=== PATIENT | female | born 1950 ===

== ENCOUNTER 2017-05-26 19:35 | Emergency (ER) | payer MEDICARE ==
[2017-05-26 19:43] VITALS: RESP 16; TEMP 97; O2SAT 98
--- NOTE | 2017-05-26 20:27 | ED PDOC ---
Lower Extremity Pain/Injury Time Seen by Provider: 05/26/17 19:44 Chief Complaint (Nursing): Lower Extremity Problem/Injury Chief Complaint (Provider): Lower Extremity Problem/Injury History Per: Patient History/Exam Limitations: no limitations Onset/Duration Of Symptoms: Days (x 21) Current Symptoms Are (Timing): Still Present Additional Complaint(s): 66 year old female presents to the ED with complaints of left knee pain beginning three weeks ago. Patient describes pain as a cramping sensation to the back of knee that radiates to the left lower leg. Patient reports pain worsens with ambulation. Patient states last night pain interfered with her ability to sleep. Patient reports she took Tylenol this morning and felt no relief. Patient states she was climbing up stairs today and felt her knee was going to buckle. Patient has no history of knee injuries. Denies chest pain, shortness or breath, cough, prolonged immobility, smoking, palpitation, nausea, vomiting, diarrhea, and abdominal pain. PMD: Dr. Arpit jN Past Medical History Reviewed: Historical Data, Nursing Documentation, Vital Signs Vital Signs: Last Vital Signs Temp 97 F L 05/26/17 19:38 Pulse 77 05/26/17 19:38 Resp 16 05/26/17 19:38 BP 167/91 H 05/26/17 19:38 Pulse Ox 98 05/26/17 19:38 - Medical History PMH: Asthma, Diverticulitis, Gastritis, HTN, Malignancy (Breast) Denies: Chronic Kidney Disease - Surgical History Other surgeries: left breast procedure (cancer) - Family History Family History: States: Unknown Family Hx - Social History Current smoker - smoking cessation education provided: No Alcohol: None Drugs: Denies - Home Medications Home Medications: Ambulatory Orders Medication Instructions Recorded Aspirin [Aspirin EC] 1 tab PO DAILY 08/29/15 Carvedilol [Coreg] 1 tab PO BID 08/29/15 Hydrochlorothiazide [HCTZ] 1 tab PO DAILY 08/29/15 Metformin HCl [Glucophage] 1 tab PO BID 08/29/15 Nortriptyline HCl [Pamelor] 1 cap PO HS 08/29/15 Acetaminophen [Acetaminophen 8 650 mg PO Q8 #24 tab 05/26/17 Hour] - Allergies Allergies/Adverse Reactions: Allergies Allergy/AdvReac Type Severity Reaction Status Date / Time ibuprofen Allergy PAIN Verified 08/28/15 23:31 Review of Systems ROS Statement: Except As Marked, All Systems Reviewed And Found Negative Musculoskeletal: Positive for: Other (left knee pain) Physical Exam - Reviewed Nursing Documentation Reviewed: Yes Vital Signs Reviewed: Yes - Physical Exam Comments: GENERAL APPEARANCE: Patient is awake, alert, oriented x 3, in no acute distress , ambulatory in the ED without difficulty. SKIN: Warm, dry; (-) cyanosis. LOWER EXTREMITY: Knee: (+) decreased ROM of left knee, (-) swelling, (+) tenderness to posterior and lateral aspects of knee, (+) mild tenderness to proximal posterior left calf, (-) warmth, (-) erythema, (-) pedal edema (-) palpable cord, (-) instability of valgus or varus (-) anterior and posterior drawer sign. CHEST AND RESPIRATORY: (-) rales, (-) rhonchi, (-) wheezes; breath sounds equal bilaterally. HEART AND CARDIOVASCULAR: (-) irregularity; (-) murmur, (-) gallop, (+) distal pulse. ABDOMEN AND GI: Soft; (-) tenderness (-) guarding (-) distention. NEUROLOGIC: (+) distal sensation and strength symmetric. - Laboratory Results Result Diagrams: 05/26/17 20:25 05/26/17 20:25 - ECG O2 Sat by Pulse Oximetry: 98 (RA) Pulse Ox Interpretation: Normal Medical Decision Making Medical Decision Making: Clinical Impression: Acute Knee Pain rule out DVT Plan: -- CMP -- CBC (with differentials) -- Partial Thromboplastin -- Prothrombin -- Knee X-Ray (3 views) -- IV Insertion (Saline) -- Duplex Lower Extremity Vein Left (US) Time: 2238 Duplex Lower Extremity US FINDINGS: Deep veins: Normal color and spectral Doppler flow. Normal compressibility. No deep vein thrombosis from common femoral to popliteal vein. Superficial veins: No thrombosis. Soft tissues: No popliteal cyst. IMPRESSION: No evidence of DVT within left lower extremity. XR reviewed, (+) DJD (-) fracture as read by Flavia DE LA VEGA Patient advised that official radiology read of XR is still pending and will call the patient if there is any discrepancy within 24 hours. Labs reviewed, grossly unremarkable despite elevated mildly LFTs. Patient states her liver enzymes have been elevated in the past. 2305 On re-evaluation, patient reports improvement of symptoms, denies any SOB or chest pain. On exam, patient remains AAOx3, in no acute distress. On exam, neck is supple, lungs CTA, cardiac RRR, abdomen is soft and non-tender, neuro exam shows no focal findings. VSS, Repeat BP: 125/73. Repeat HR: 68. Repeat O2 100% RA. Diagnostic results d/w the patient in great detail. Dx of acute knee and lower extremity pain, osteoarthritis d/w the patient. Based on history, exam and diagnostic results plan will be for discharge and outpatient follow up. Advised to follow up with primary care physician in 1-2 days without fail. Advised to take medication as prescribed. Return to the emergency room at any time for any new or worsening symptoms. Patient states she fully agrees with and understands discharge instructions. States that she agrees with the plan and disposition. Verbalized and repeated discharge instructions and plan. I have given the patient opportunity to ask any additional questions. Scribe Attestation: Documented by Jeffry Sherman, acting as a scribe for Jeanette Alejandro PA-C. Provider Scribe Attestation: All medical record entries made by the Scribe were at my direction and personally dictated by me. I have reviewed the chart and agree that the record accurately reflects my personal performance of the history, physical exam, medical decision making, and the department course for this patient. I have also personally directed, reviewed, and agree with the discharge instructions and disposition. Disposition - Clinical Impression Clinical Impression: Knee pain, Osteoarthritis - Patient ED Disposition Is Patient to be Admitted: No Counseled Patient/Family Regarding: Studies Performed, Diagnosis, Need For Followup, Rx Given - Disposition Referrals: Arpit Nj MD [Family Provider] - Disposition: Routine/Home Disposition Time: 23:09 Condition: STABLE Prescriptions: Acetaminophen [Acetaminophen 8 Hour] 650 mg PO Q8 #24 tab Instructions: Osteoarthritis, Knee Pain Forms: [email or web address] (Setswana) Print Language: TAJIK - POA Present On Arrival: None Results - Lab Results Lab Results: 05/26/17 05/26/17 05/26/17 20:25 20:25 20:25 WBC 6.5 RBC 5.07 Hgb 14.7 Hct 43.2 MCV 85.2 MCH 29.0 MCHC 34.0 RDW 12.8 Plt Count 293 MPV 7.2 Neut % (Auto) 51.7 Lymph % (Auto) 34.0 York % (Auto) 10.4 H Eos % (Auto) 3.3 Baso % (Auto) 0.6 Neut # (Auto) 3.3 Lymph # (Auto) 2.2 York # (Auto) 0.7 Eos # (Auto) 0.2 Baso # (Auto) 0.0 PT 10.9 INR 1.0 APTT 31.5 Sodium 142 Potassium 4.0 Chloride 101 Carbon Dioxide 27 Anion Gap 18 BUN 18 H Creatinine 0.9 Est GFR ( Amer) > 60 Est GFR (Non-Af Amer) > 60 Random Glucose 102 Calcium 9.6 Total Bilirubin 0.9 AST 44 H ALT 57 H D Alkaline Phosphatase 161 H Total Protein 9.1 H Albumin 4.6 Globulin 4.5 H Albumin/Globulin Ratio 1.0
[2017-05-26 20:31] LABS: BASO % 0.6 % (0.0-2.0); EOS # 0.2 K/uL (0.0-0.7); EOS % 3.3 % (0.0-4.0); HEMOGLOBIN 14.7 g/dL (12.0-16.0); LYMPH # 2.2 K/uL (1.0-4.3); MEAN CELL VOLUME 85.2 fl (81.0-99.0); MEAN PLATELET VOLUME 7.2 fl (7.2-11.7); MONO # 0.7 K/uL (0.0-0.8); MONO % 10.4 % (0.0-10.0); NEUT # 3.3 K/uL (1.8-7.0); NEUT % 51.7 % (50.0-75.0); NRBC % 0.1 % (0.0-0.0); RBC 5.07 Mil/uL (3.80-5.20); RED CELL DISTRIBUTION WIDTH 12.8 % (11.5-14.5); WHITE BLOOD COUNT 6.5 K/uL (4.8-10.8)
[2017-05-26 20:40] LABS: ALBUMIN 4.6 g/dL (3.5-5.0); ALT/SGPT 57 U/L (9-52); AST/SGOT 44 U/L (14-36); BLOOD UREA NITROGEN 18 mg/dl (7-17); CALCIUM 9.6 mg/dL (8.4-10.2); GFR AFRICAN-AMERICAN > 60; GFR NON-AFRICAN AMERICAN > 60
[2017-05-26 20:48] LABS: PARTIAL THROMBOPLASTIN TIME 31.5 Seconds (25.6-37.1); PROTHROMBIN TIME 10.9 Seconds (9.8-13.1)
--- NOTE | 2017-05-26 22:01 | US ---
EXAM: US Duplex Left Lower Extremity Veins CLINICAL HISTORY: 66 years old, female; Pain; Leg, lower; Left; Additional info: D/o dvt TECHNIQUE: Real-time duplex ultrasound scan of the left lower extremity veins integrating B-mode two-dimensional vascular structure, Doppler spectral analysis, color flow Doppler imaging and compression. COMPARISON: No relevant prior studies available. FINDINGS: Deep veins: Normal color and spectral Doppler flow. Normal compressibility. No deep vein thrombosis from common femoral to popliteal vein. Superficial veins: No thrombosis. Soft tissues: No popliteal cyst. IMPRESSION: No evidence of DVT within left lower extremity.
[2017-05-26 22:59] VITALS: BP 125/63; PULSE 68
--- NOTE | 2017-05-27 11:13 | RAD ---
PROCEDURE: Left Knee Radiographs. HISTORY: Pain. COMPARISON: 04/04/2014. FINDINGS: BONES: There is no acute displaced fracture or bone destruction. Bone alignment is normal. JOINTS: There is redemonstration of moderate tricompartmental degenerative osteoarthrosis with reduced joint spaces, marginal spurring and tibial spiking, worse in the medial compartment. JOINT EFFUSION: There is a small suprapatellar joint effusion. OTHER FINDINGS: None. IMPRESSION: Moderate tricompartmental degenerative osteoarthrosis, worse in the medial compartment. No significant interval change.
== END 2017-05-26 23:21 | disposition home or self-care (01) ==
LOC: H.ER 19:35
DX: M17.12 Unilateral primary osteoarthritis, left knee (principal); I10 Essential (primary) hypertension; J45.909 Unspecified asthma, uncomplicated; Z79.82 Long term (current) use of aspirin

== ENCOUNTER 2018-01-05 09:24 | Emergency (ER) | payer MEDICARE ==
[2018-01-05 09:33] VITALS: BP 131/82; PULSE 87; TEMP 98.4; O2SAT 95
--- NOTE | 2018-01-05 10:11 | ED PDOC ---
HPI: General Adult Time Seen by Provider: 01/05/18 09:46 Chief Complaint (Nursing): Back Pain History Per: Patient Onset/Duration Of Symptoms: Days (3) Current Symptoms Are (Timing): Still Present Additional Complaint(s): Constipation x3 days. Pain when attempting to have BM. Denies abd pain, bleeding or vomiting. Denies fever. Past Medical History Vital Signs: Last Vital Signs Temp 98.4 F 01/05/18 09:32 Pulse 87 01/05/18 09:32 Resp BP 131/82 01/05/18 09:32 Pulse Ox 95 01/05/18 09:32 - Medical History PMH: Asthma, Diverticulitis, Gastritis, HTN, Malignancy (Breast) Denies: Chronic Kidney Disease - Surgical History Surgical History: Denies: Carotid Endarterectomy - Family History Family History: States: Unknown Family Hx - Home Medications Home Medications: Ambulatory Orders Medication Instructions Recorded Aspirin [Aspirin EC] 1 tab PO DAILY 08/29/15 Carvedilol [Coreg] 1 tab PO BID 08/29/15 Hydrochlorothiazide [HCTZ] 1 tab PO DAILY 08/29/15 Metformin HCl [Glucophage] 1 tab PO BID 08/29/15 Nortriptyline HCl [Pamelor] 1 cap PO HS 08/29/15 Acetaminophen [Acetaminophen 8 650 mg PO Q8 #24 tab 05/26/17 Hour] Lactulose 10 gm PO HS #1 solution 01/05/18 - Allergies Allergies/Adverse Reactions: Allergies Allergy/AdvReac Type Severity Reaction Status Date / Time ibuprofen Allergy PAIN Verified 01/05/18 09:39 Review of Systems Constitutional: Negative for: Fever Gastrointestinal: Positive for: Constipation. Negative for: Abdominal Pain Physical Exam - Physical Exam Appears: Positive for: Non-toxic, No Acute Distress Gastrointestinal/Abdominal: Positive for: Bowel Sounds, Soft. Negative for: Tenderness Rectal: Negative for: Black Stool, Blood Streaked Stool, Hemorrhoids, Mass, Tenderness - ECG O2 Sat by Pulse Oximetry: 95 Disposition - Clinical Impression Clinical Impression: Constipation - Patient ED Disposition Is Patient to be Admitted: No Counseled Patient/Family Regarding: Diagnosis, Need For Followup, Rx Given - Disposition Referrals: [facility] [Outside] Disposition: Routine/Home Disposition Time: 12:09 Condition: FAIR Prescriptions: Lactulose 10 gm PO HS #1 solution Instructions: Constipation in Adults Forms: [employer] (Georgian) Print Language: LITHUANIAN
== END 2018-01-05 12:22 | disposition home or self-care (01) ==
LOC: H.ER 09:24
DX: K59.00 Constipation, unspecified (principal)

== ENCOUNTER 2018-01-10 07:42 | Emergency (ER) | payer MEDICARE ==
[2018-01-10 07:50] VITALS: BMI 34.7
--- NOTE | 2018-01-10 09:03 | ED PDOC ---
HPI: CCC, URI, Sore Throat Time Seen by Provider: 01/10/18 08:45 Chief Complaint (Nursing): Cough, Cold, Congestion Chief Complaint (Provider): Cough, congestion History Per: Patient History/Exam Limitations: no limitations Onset/Duration Of Symptoms: Days (x2) Current Symptoms Are (Timing): Still Present Additional Complaint(s): 67 year old female presents to the ED complaining of productive cough and congestion for 2 days. Patient reports subjective fever, sore throat, and redness to the right eye. She denies chest pain and shortness of breath. PMD: Arpit Brown Past Medical History Reviewed: Historical Data, Nursing Documentation, Vital Signs Vital Signs: Last Vital Signs Temp 98.2 F 01/10/18 07:48 Pulse 89 01/10/18 07:48 Resp 20 01/10/18 07:48 BP 143/85 01/10/18 07:48 Pulse Ox 95 01/10/18 07:48 - Medical History PMH: Asthma, Diverticulitis, Gastritis, HTN, Malignancy (Breast) Denies: Chronic Kidney Disease - Surgical History Surgical History: Denies: Carotid Endarterectomy - Family History Family History: States: Unknown Family Hx - Home Medications Home Medications: Ambulatory Orders Medication Instructions Recorded Aspirin [Aspirin EC] 1 tab PO DAILY 08/29/15 Carvedilol [Coreg] 1 tab PO BID 08/29/15 Hydrochlorothiazide [HCTZ] 1 tab PO DAILY 08/29/15 Metformin HCl [Glucophage] 1 tab PO BID 08/29/15 Nortriptyline HCl [Pamelor] 1 cap PO HS 08/29/15 Acetaminophen [Acetaminophen 8 650 mg PO Q8 #24 tab 05/26/17 Hour] Lactulose 10 gm PO HS #1 solution 01/05/18 Albuterol HFA [Ventolin HFA 90 2 puff IH [id number] #1 inh 01/10/18 mcg/actuation (8 g)] - Allergies Allergies/Adverse Reactions: Allergies Allergy/AdvReac Type Severity Reaction Status Date / Time ibuprofen Allergy PAIN Verified 01/05/18 09:39 Review of Systems ROS Statement: Except As Marked, All Systems Reviewed And Found Negative Constitutional: Positive for: Fever Eyes: Positive for: Redness (right eye) ENT: Positive for: Nose Congestion, Throat Pain Cardiovascular: Negative for: Chest Pain Respiratory: Positive for: Cough. Negative for: Shortness of Breath Physical Exam - Reviewed Nursing Documentation Reviewed: Yes Vital Signs Reviewed: Yes - Physical Exam Appears: Positive for: Non-toxic, No Acute Distress Head Exam: Positive for: ATRAUMATIC, NORMOCEPHALIC Skin: Positive for: Normal Color, Warm, Dry Eye Exam: Positive for: Other (Right eye redness) Neck: Positive for: Normal, Painless ROM Cardiovascular/Chest: Positive for: Regular Rate, Rhythm Respiratory: Positive for: Normal Breath Sounds. Negative for: Wheezing, Respiratory Distress Extremity: Positive for: Normal ROM Neurologic/Psych: Positive for: Alert, Oriented. Negative for: Motor/Sensory Deficits - ECG O2 Sat by Pulse Oximetry: 95 (RA) Pulse Ox Interpretation: Normal - Radiology X-Ray: Interpreted by Me, Viewed By Me X-Ray Interpretation: No Acute Disease Medical Decision Making Medical Decision Making: Initial Impression: URI symptoms Differential includes influenza and pneumonia Initial Plan: --Chest X-ray --Promethazine 5mL PO --Influenza A B stat Scribe Attestation: Documented by Raffi Madrigal acting as a scribe for Pebbles Pagan MD. Provider Scribe Attestation: All medical record entries made by the Scribe were at my direction and personally dictated by me. I have reviewed the chart and agree that the record accurately reflects my personal performance of the history, physical exam, medical decision making, and the department course for this patient. I have also personally directed, reviewed, and agree with the discharge instructions and disposition. Disposition - Clinical Impression Clinical Impression: URI (upper respiratory infection) - Patient ED Disposition Is Patient to be Admitted: No Counseled Patient/Family Regarding: Studies Performed, Diagnosis, Need For Followup - Disposition Referrals: [facility] [Outside] Disposition: Routine/Home Disposition Time: 11:01 Condition: GOOD Additional Instructions: MARLI STANTON, thank you for letting us take care of you today. Your provider was Pebbles Pagan MD and you were treated for COUGH COLD, RT EYE PAIN. The emergency medical care you received today was directed at your acute symptoms. If you were prescribed any medication, please fill it and take as directed. It may take several days for your symptoms to resolve. Return to the Emergency Department if your symptoms worsen, do not improve, or if you have any other problems. Please contact your doctor or call one of the physicians/clinics you have been referred to that are listed on the Patient Visit Information form that is included in your discharge packet. Bring any paperwork you were given at discharge with you along with any medications you are taking to your follow up visit. Our treatment cannot replace ongoing medical care by a primary care provider outside of the emergency department. Thank you for allowing the [facility] team to be part of your care today. If you had an X-Ray or CT scan: A Radiologist will review the ED reading if any change in treatment is needed we will contact you. If you had a blood, urine, or wound culture: It will take several days for the results, if any change in treatment is needed we will contact you. If you had an STI test: It will take 48 hours for the results. Please call after 1 week if you have not heard back. Prescriptions: Albuterol HFA [Ventolin HFA 90 mcg/actuation (8 g)] 2 puff IH [id number] #1 inh Instructions: Acute Bronchitis
[2018-01-10] MEDS ORDERED: Promethazine/Cod 6.25mg-10mg/5ml Syr UD PO STA (09:16)
[2018-01-10] MEDS ORDERED: Promethazine/Cod 6.25mg-10mg/5ml Syr UD ONE (09:30)
[2018-01-10 11:17] VITALS: BP 135/80; PULSE 75; RESP 16; TEMP 97.9; O2SAT 100
--- NOTE | 2018-01-10 14:32 | RAD ---
Date of service: 01/10/2018 HISTORY: fever cough COMPARISON: Chest radiographs 08/29/2015. TECHNIQUE: Chest PA and lateral FINDINGS: LUNGS: No definite alveolitis bilaterally. Questionable reticular changes at the left base, potentially chronic. Ring-like calcification in the inferior left lung zone may reflect prominent left 5th costochondral calcification as appears to parallel the site of the left costochondral junction currently as well as in prior radiographs. PLEURA: Pleural thickening favored over trace fluid chronically at the minor fissure. No large pleural effusion bilaterally. No pneumothorax bilaterally. CARDIOVASCULAR: No aortic atherosclerotic calcification present. Mild cardiomegaly. No pulmonary vascular congestion. No pulmonary vascular congestion. OSSEOUS STRUCTURES: No significant abnormalities. VISUALIZED UPPER ABDOMEN: Normal. OTHER FINDINGS: None. IMPRESSION: Borderline increased reticular changes left base but no alveolitis bilaterally. No pleural effusion or pneumothorax bilaterally. Mild cardiomegaly, stable. No pulmonary vascular congestion. Trace effusion or thickening stable at the minor fissure.
== END 2018-01-10 11:32 | disposition home or self-care (01) ==
LOC: H.ER 07:42
DX: J06.9 Acute upper respiratory infection, unspecified (principal); I10 Essential (primary) hypertension; Z85.3 Personal history of malignant neoplasm of breast

== ENCOUNTER 2018-01-14 00:15 | Emergency (ER) | payer MEDICARE ==
[2018-01-14 00:15] VITALS: BMI 34.7
[2018-01-14] MEDS ORDERED: Promethazine 12.5 mg/10 ml Syrup PO STA (01:21)
[2018-01-14] MEDS ORDERED: Albuterol-Ipratrop 3 mg / 0.5 (3 ml) UD INH STA (01:21)
[2018-01-14] MEDS ORDERED: Albuterol-Ipratrop 3 mg / 0.5 (3 ml) UD ONE (01:53)
[2018-01-14] MEDS ORDERED: Promethazine 6.25 MG/5 ML CUP ONE (01:53)
[2018-01-14 01:59] LABS: VENOUS BLOOD GAS BASE EXCESS 1.2 mmol/L (0.0-2.0); VENOUS BLOOD GAS PCO2 41 mmHg (40-60); VENOUS BLOOD GAS PO2 71 mm/Hg (30-55); VENOUS BLOOD PH 7.41 (7.32-7.43)
[2018-01-14 02:06] LABS: BLOOD UREA NITROGEN 20 mg/dl (7-17); CALCIUM 8.9 mg/dL (8.4-10.2); GFR NON-AFRICAN AMERICAN > 60
[2018-01-14 02:09] LABS: BASO # 0.1 K/uL (0.0-0.2); BASO % 0.7 % (0.0-2.0); EOS # 0.1 K/uL (0.0-0.7); EOS % 0.8 % (0.0-4.0); HEMOGLOBIN 12.8 g/dL (12.0-16.0); LYMPH # 2.4 K/uL (1.0-4.3); MEAN CELL VOLUME 86.7 fl (81.0-99.0); MEAN CORPUSCULAR HGB CONC 33.5 g/dL (33.0-37.0); MEAN PLATELET VOLUME 7.2 fl (7.2-11.7); MONO # 1.1 K/uL (0.0-0.8); MONO % 10.6 % (0.0-10.0); NEUT # 6.4 K/uL (1.8-7.0); NEUT % 63.9 % (50.0-75.0); NRBC % 0.1 % (0.0-0.0); RBC 4.4 Mil/uL (3.80-5.20)
--- NOTE | 2018-01-14 04:06 | ED PDOC ---
History of Present Illness History of Present Illness: 67 years old female with history of pre-diabetes and hypertension presents to ER for evaluation of productive cough with white phlegm onset 3 days ago. Patient reports she was seen in ED earlier this week and diagnosed with Bronchitis. She states she was discharged with antibiotic and was given medication by her PMD, which did not help. Patient reports coughing so badly today that she had hard time breathing during the coughing fits. She denies fever or chest pain. PMD:Arpit Nj HPI: Influenza Time Seen by Provider: 01/14/18 00:30 Chief Complaint: Cough, Cold, Congestion Chief Complaint (Provider): Cough, Cold, Congestion History Per: Patient Exam Limitations: no limitations Onset/Duration Of Symptoms: Days (x3) Symptoms include: cough, difficulty breathing. denies: fever Past Medical History Reviewed: Historical Data, Nursing Documentation, Vital Signs Vital Signs: Last Vital Signs Temp 97.9 F 01/14/18 00:23 Pulse 106 H 01/14/18 00:23 Resp 16 01/14/18 00:23 BP 120/86 01/14/18 00:23 Pulse Ox 98 01/14/18 00:23 - Medical History PMH: Asthma, Bronchitis, Diabetes (pre), Diverticulitis, Gastritis, HTN, Malignancy (Breast) Denies: Chronic Kidney Disease - Surgical History Surgical History: No Surg Hx Denies: Carotid Endarterectomy - Family History Family History: States: Unknown Family Hx - Social History Current smoker - smoking cessation education provided: No Alcohol: None Drugs: Denies - Home Medications Home Medications: Ambulatory Orders Medication Instructions Recorded Aspirin [Aspirin EC] 1 tab PO DAILY 08/29/15 Carvedilol [Coreg] 1 tab PO BID 08/29/15 Hydrochlorothiazide [HCTZ] 1 tab PO DAILY 08/29/15 Metformin HCl [Glucophage] 1 tab PO BID 08/29/15 Nortriptyline HCl [Pamelor] 1 cap PO HS 08/29/15 Acetaminophen [Acetaminophen 8 650 mg PO Q8 #24 tab 05/26/17 Hour] Lactulose 10 gm PO HS #1 solution 01/05/18 Albuterol HFA [Ventolin HFA 90 2 puff IH [id number] #1 inh 01/10/18 mcg/actuation (8 g)] Benzonatate [Tessalon Perle] 100 mg PO TID #20 capsule 01/14/18 Promethazine [Phenergan Syrup] 10 ml PO BID PRN #100 ml 01/14/18 - Allergies Allergies/Adverse Reactions: Allergies Allergy/AdvReac Type Severity Reaction Status Date / Time ibuprofen Allergy PAIN Verified 01/05/18 09:39 Review of Systems ROS Statement: Except As Marked, All Systems Reviewed And Found Negative Constitutional: Negative for: Fever Cardiovascular: Negative for: Chest Pain Respiratory: Positive for: Cough (with white phlegm), Shortness of Breath Physical Exam - Reviewed Nursing Documentation Reviewed: Yes Vital Signs Reviewed: Yes - Physical Exam Appears: Positive for: Well, No Acute Distress Head Exam: Positive for: ATRAUMATIC, NORMOCEPHALIC Skin: Positive for: Normal Color, Warm, Dry Eye Exam: Positive for: Normal appearance, EOMI, PERRL ENT: Positive for: Normal ENT Inspection, Pharynx Is (normal), Other (Hoarseness of voice). Negative for: TM Is/Are Cardiovascular/Chest: Positive for: Regular Rate, Rhythm. Negative for: Murmur Respiratory: Positive for: Normal Breath Sounds, Other (Active cough). Negative for: Wheezing, Respiratory Distress Extremity: Positive for: Normal ROM. Negative for: Pedal Edema, Swelling Neurologic/Psych: Positive for: Alert, Oriented (x3) Medical Decision Making Medical Decision Making: Time: 0120 A/P: 67 years old female with history of hypertension presents with continuous cough for 3 days --Patient is well appearing --Etiology is most likely viral --Will check blood work --Will Treat symptomatically 4AM --Patient is feeling much improved --No coughing in ED --ADvised followup with Dr. Arpit Nj on Thursday --Very well appearing upon discahrge Scribe Attestation: Documented by Jeimy Kaplan, acting as a scribe for Obed Dos Santos MD. Provider Scribe Attestation: All medical record entries made by the Scribe were at my direction and personally dictated by me. I have reviewed the chart and agree that the record accurately reflects my personal performance of the history, physical exam, medical decision making, and the department course for this patient. I have also personally directed, reviewed, and agree with the discharge instructions and disposition. - Laboratory Results Result Diagrams: 01/14/18 01:30 01/14/18 01:30 - ECG O2 Sat by Pulse Oximetry: 98 Disposition - Clinical Impression Clinical Impression: Cough - Patient ED Disposition Is Patient to be Admitted: No - Disposition Referrals: Arpit Nj MD [Family Provider] - Disposition: Routine/Home Disposition Time: 04:23 Condition: IMPROVED Prescriptions: Benzonatate [Tessalon Perle] 100 mg PO TID #20 capsule Promethazine [Phenergan Syrup] 10 ml PO BID PRN #100 ml PRN Reason: Cough Instructions: Cough in Adults Forms: [employer] (Libyan) Print Language: SAMOAN
[2018-01-14 05:38] VITALS: BP 110/71; PULSE 94; RESP 18; TEMP 98.6; O2SAT 100
--- NOTE | 2018-01-14 09:28 | CARD ---
APPROVED REPORT Date of service: 01/14/2018 EKG Measurement Heart [id number] <Conclusion> Normal sinus rhythm Normal ECG
--- NOTE | 2018-01-14 12:36 | RAD ---
Date of service: 01/14/2018 HISTORY: worsening cough COMPARISON: 01/10/2018 TECHNIQUE: Chest PA and lateral FINDINGS: LUNGS: No active pulmonary disease. PLEURA: No significant pleural effusion identified. No pneumothorax apparent. CARDIOVASCULAR: No aortic atherosclerotic calcification present. No radiographic findings to suggest acute or significant cardiovascular disease. No pulmonary vascular congestion. OSSEOUS STRUCTURES: No significant abnormalities. VISUALIZED UPPER ABDOMEN: Normal. OTHER FINDINGS: None. IMPRESSION: No active disease. No significant interval change compared to the prior examination(s).
== END 2018-01-14 04:55 | disposition home or self-care (01) ==
LOC: H.ER 00:15
DX: R05 Cough (principal); I10 Essential (primary) hypertension; J45.909 Unspecified asthma, uncomplicated; R73.03 Prediabetes; Z85.3 Personal history of malignant neoplasm of breast; Z79.899 Other long term (current) drug therapy